=== PATIENT | female | born 1965 | race Caucasian/White ===

== ENCOUNTER 2018-02-12 15:08 | Emergency (ER) | payer BC, OTHER ==
[~2018-02-12] VITALS: Ht 172.7 cm; Wt 106.1 kg
[~2018-02-12 15:08] MED LIST: ATENOLOL 25 MG25 M1; CIPRO500 MG PO; PYRIDIUM100 M1 PO; ZESTORETIC 20-1 EAC2; ZOFRAN ODT4 MG PO; ZOLOFT100 MG PO
[2018-02-12 15:54] LABS: URINE BILIRUBIN NEGATIVE (Negative); URINE BLOOD 3+ (Negative); URINE CLARITY CLEAR; URINE COLOR YELLOW; URINE GLUCOSE-RANDOM NEGATIVE (Negative); URINE KETONES NEGATIVE (Negative); URINE NITRITE-REFLEX NEGATIVE (Negative); URINE PROTEIN 2+ (Negative); URINE UROBILINOGEN 0.2 E.U./dl (0.2-1.0)
[2018-02-12 16:10] LABS: URINE LEUKOCYTES-REFLEX 2+ (Negative)
[2018-02-12 16:29] LABS: BACTERIA-REFLEX 1-9 Few /HPF (None Seen); CASTS None Seen /LPF (None Seen); CRYSTALS None Seen /LPF (None Seen); MUCUS 0-3 Light strn/LPF (None Seen); SQUAMOUS 4-10 Moderate /LPF (0-3); URINE WBC-REFLEX 6-15 Few /HPF (0-5)
[2018-02-12] MEDS ORDERED: CIPRO500 MG PO (16:30)
[2018-02-12 16:40] VITALS: BP 145/88
== END 2018-02-12 16:41 | disposition home or self-care (01) ==
LOC: M.ERS 15:08
PROVIDERS: Nurse Practitioner Family
DX: N30.90 Cystitis, unspecified without hematuria (principal); I10 Essential (primary) hypertension; F32.9 Major depressive disorder, single episode, unspecified; Z90.710 Acquired absence of both cervix and uterus; F17.210 Nicotine dependence, cigarettes, uncomplicated; Z88.2 Allergy status to sulfonamides

== ENCOUNTER 2018-08-31 11:17 | Emergency (ER) | payer BC, OTHER ==
[~2018-08-31] VITALS: Ht 172.7 cm; Wt 108.9 kg
[2018-08-31 12:26] LABS: ABSOLUTE BASOPHILS 0.1 thou/uL (0.0-0.2); ABSOLUTE EOSINOPHILS 0.1 thou/uL (0.0-0.7); ABSOLUTE LYMPHOCYTES 1.1 thou/uL (0.8-5.3); ABSOLUTE MONOCYTES 0.7 thou/uL (0.0-1.2); ABSOLUTE NEUTROPHILS 8.8 thou/uL (1.6-8.1); BASOPHILS 0.8 %; EOSINOPHILS 1.1 %; HEMATOCRIT 37.2 % (37.0-47.0); HEMOGLOBIN 13.2 gm/dL (12.0-15.0); LYMPHOCYTES 10.4 %; MCH 30.6 pg (26.0-34.0); MCHC 35.4 g/dL (28.0-37.0); MCV 86.3 fL (80.0-100.0); MONOCYTES 6.6 %; MPV 8.4 fl. (7.2-11.1); NUCLEATED RBCS 0 /100WBC; PLATELET COUNT* 104 thou/uL (150-400); POLYS 81.1 %; RBC 4.31 mil/uL (4.20-5.00); WBC 10.9 thou/uL (4.0-11.0)
[2018-08-31 12:35] LABS: CALCIUM 8.7 mg/dL (8.5-10.1); CREATININE 0.8 mg/dL (0.6-1.3); POTASSIUM 3.7 mmol/L (3.5-5.1)
[2018-08-31 12:40] LABS: ALBUMIN 3.5 g/dL (3.4-5.0); TOTAL BILIRUBIN 0.7 mg/dL (<0.1-1.0); TOTAL PROTEIN 6.5 g/dL (6.4-8.2)
[2018-08-31 13:40] VITALS: BP 152/84
== END 2018-08-31 13:42 | disposition home or self-care (01) ==
LOC: M.ERS 11:17
PROVIDERS: Personal Emergency Response Attendant
DX: R10.30 Lower abdominal pain, unspecified (principal); F17.210 Nicotine dependence, cigarettes, uncomplicated; I10 Essential (primary) hypertension; F32.9 Major depressive disorder, single episode, unspecified; Z88.2 Allergy status to sulfonamides; Z90.710 Acquired absence of both cervix and uterus